=== PATIENT | female | born 1990 | race Caucasian/White ===

== ENCOUNTER → 2019-05-23 11:16 | Outpatient (CLI) | payer SELFPAY ==
[2019-05-23 15:49] LABS: Chlamydia Trachomatis by PCR Negative (Negative); Neisserai gonorrhoeae by PCR Negative (Negative); Probe Check PASS; Sample Adequacy Control PASS; Specimen Processing Control PASS
[2019-05-29 14:04] LABS: HPV APTIMA, High Risk Negative (Negative); HPV Reflexed? YES, CHARGE PATIENT
== END ==
PROVIDERS: Visit Provider Obstetrics & Gynecology
DX: Z12.4 Encounter for screening for malignant neoplasm of cervix (principal); Z11.3 Encounter for screening for infections with a predominantly sexual mode of transmission; Z32.01 Encounter for pregnancy test, result positive
CPT/HCPCS: 87491; 87591; 87624; 88175; G0145

== ENCOUNTER → 2019-06-20 11:14 | Outpatient (CLI) | payer SELFPAY ==
[2019-06-20 13:58] LABS: Absolute Lymphocyte Count 2.32 X10^3/uL (0.83-4.51); Absolute Neutrophil Count 7.2 X10^3/uL (2.0-7.7); Basophil# 0.02 X10^3/uL; Basophil% 0.2 % (0-1); Eosinophil# 0.03 X10^3/uL; Eosinophils% 0.3 % (0-5); Hemoglobin 11.7 g/dL (12.0-15.0); Lymphocyte # 2.32 X10^3/ul (4.0); Lymphocyte % 22.9 % (19-41); Mean Corp Hgb Conc 33.4 g/dL (32-36); Mean Corpuscular Hgb 29.5 pg (27.0-32.0); Mean Corpuscular Volume 88.2 fL (81-99); Mean Platelet Vol. 11.8 fl (6.2-12.0); Monocyte% 4.9 % (0-10); NRBC Flagged by Analyzer 0 % (0-5); Neutrophil # 7.23 X10^3/uL (2.7-7.7); Neutrophil % 71.4 % (47-70); Platelet Count 179 K/mm3 (150-450); RBC Distribution Width CV 13.1 % (11.6-14.6); RBC Distribution Width SD 42.2 fl (35.1-43.9); Red Blood Count 3.97 M/mm3 (4.2-5.4); White Blood Count 10.1 K/mm3 (4.4-11.0)
[2019-06-20 14:02] LABS: Color, Urine Yellow (Yellow); Glucose, Dipstick Normal (Normal); Ketone-Dipstick Negative (Negative); Leukocyte Esterase-Dipstick 500 /ul (Negative); Nitrite-Dipstick Negative (Negative); Occult Blood-Urine Negative /ul (Negative); Protein-Dipstick Negative (Negative); Urine Bilirubin Dipstick Negative (Negative); Urine Clarity Clear (Clear); Urine Urobilinogen Normal (Normal)
[2019-06-20 14:20] LABS: Free T3 2.6 pg/mL (2.18-3.98); T4 Free Direct 0.87 ng/dL (0.76-1.46); Thyroid Stim Hormone (TSH) 0.94 uIU/mL (0.358-3.74)
[2019-06-20 14:59] LABS: HIV - WCH Non-Reactive (Nonreactive); Hepatitis B Surface Antigen Non-Reactive (Nonreactive); Hepatitis C Antibody Non-Reactive (Nonreactive); Rubella IgG 132.9 IU/mL; Vitamin D,25 Hydroxy 30.9 ng/mL (29.95-100.01)
[2019-06-24 04:45] LABS: Prenatal RPR NONREACTIVE (NONREACTIVE)
== END ==
PROVIDERS: Visit Provider Obstetrics & Gynecology
DX: Z34.82 Encounter for supervision of other normal pregnancy, second trimester (principal)
CPT/HCPCS: 36415; 81002; 82306; 84439; 84443; 84481; 85025; 86703; 86762; 86803; 87340

== ENCOUNTER → 2019-09-13 09:04 | Outpatient (CLI) | payer SELFPAY ==
[2019-09-13 10:38] LABS: Hemoglobin 11.2 g/dL (12.0-15.0); Mean Corp Hgb Conc 32.9 g/dL (32-36); Mean Corpuscular Hgb 29.6 pg (27.0-32.0); Mean Corpuscular Volume 89.9 fL (81-99); Mean Platelet Vol. 10.8 fl (6.2-12.0); Platelet Count 182 K/mm3 (150-450); RBC Distribution Width CV 13.1 % (11.6-14.6); RBC Distribution Width SD 42.8 fl (35.1-43.9); Red Blood Count 3.78 M/mm3 (4.2-5.4); White Blood Count 11.2 K/mm3 (4.4-11.0)
[2019-09-13 10:42] LABS: Glucose Challenge Gest 1H 50g 88 mg/dL (70-140)
== END ==
PROVIDERS: Visit Provider Obstetrics & Gynecology
DX: Z34.83 Encounter for supervision of other normal pregnancy, third trimester (principal)
CPT/HCPCS: 36415; 82950; 85027

== ENCOUNTER → 2019-11-07 15:40 | Outpatient (CLI) | payer SELFPAY | PROVIDERS: Visit Provider Obstetrics & Gynecology | DX: Z34.83 Encounter for supervision of other normal pregnancy, third trimester (principal); Z36.85 Encounter for antenatal screening for Streptococcus B | CPT/HCPCS: 87081 ==

== ENCOUNTER 2019-12-12 18:50 | Inpatient (IN) | payer SELFPAY ==
[2019-12-12 18:59] VITALS: BMI 32.8
[2019-12-12] MEDS: Lactated Ringers 1,000 ML 50 ML IV (19:40)
[2019-12-12 20:27] LABS: Absolute Lymphocyte Count 2.71 X10^3/uL (0.83-4.51); Absolute Neutrophil Count 8.2 X10^3/uL (2.0-7.7); Basophil# 0.05 X10^3/uL; Basophil% 0.4 % (0-1); Eosinophil# 0.04 X10^3/uL; Eosinophils% 0.3 % (0-5); Hemoglobin 12.3 g/dL (12.0-15.0); Lymphocyte # 2.71 X10^3/ul (4.0); Lymphocyte % 22.5 % (19-41); Mean Corp Hgb Conc 33.2 g/dL (32-36); Mean Corpuscular Volume 87.3 fL (81-99); Mean Platelet Vol. 10.8 fl (6.2-12.0); Monocyte% 7.5 % (0-10); NRBC Flagged by Analyzer 0 % (0-5); Neutrophil % 68.1 % (47-70); Platelet Count 199 K/mm3 (150-450); RBC Distribution Width CV 13.5 % (11.6-14.6); RBC Distribution Width SD 42.8 fl (35.1-43.9); Red Blood Count 4.24 M/mm3 (4.2-5.4)
[2019-12-12] MEDS: Lactated Ringers 500 ML 999 ML IV (23:38)
--- NOTE | 2019-12-12 23:55 | HP.PCM_ITS ---
History and Physical Date of Admission: 12/12/19 ACOG ANTEPARTUM RECORD - HISTORY AND PHYSICAL (12/12/2019) Name: NORMA TORRES OB Physician: MIKEY What Cheer's Physician: UNDECIDED ...................................................................... : 1990 Age: 29 Address: [address] [place] [address] Phone: H) [phone] (O) [phone] Insurance Carrier: Emergency Contact: KATLYN TORRES/[employer] [phone] ...................................................................... Norma is 29 yo at 41w3d by L=18w4d US who presented to the office today with c/o painful contractions throughout the weekend and loss of mucous plug; post dates NST was reactive and reassuring; cervical exam showed subtle change from exam at previous PNV with Doran score of 10; pt hesitant to return home to wait for IOL in two days, so recommended getting lunch and walking for 2-3 hours; upon return to office, no cervical change noted, but as patient favorable for AROM IOL, living 25 minutes away from hospital and needing to hire a delivery driver for transportation, she decided to stay for IOL this evening at 1900; Over the past several visits she has expressed a preference for as natural as possible a delivery with CNM instead of her original plan for MD only; Pt is Group B negative; She is A negative blood type; spouse is also A negative; pt declined Rhogam prenatally and today; at 2230 FHR was in the 180s with moderate variability and variables; interventions were ordered and plan to proceed was postponed until FHR was more reassuring Final JAVY: 12/02/19 By Ultrasound: 18 weeks 4 days PARITY: (G-Total Pregnancies P-Fullterm,Premature,Induced AB,Spont AB, Ectopics, Multiple,Living) JAVY CONFIRMATION: By LMP: 02/25/19 Final JAVY: 12/02/19 OB PROBLEM LIST: Declines AFP and CF. Office Class suggested. Asked to bring in dosages for her supplements, iron etc at next visit. is RN negative, see donor card in Repository, did not receive Rhogam at 28 weeks Z: Pt prefers MD for PNC and delivery; ALLERGIES: No Known Drug Allergies MEDICATIONS: Classic 28 mg iron- 800 mcg tablet One pill by mouth once a day iron 18 mg tablet Two pills by mouth once a day [place]-3 Fish Oil 300-1,000 mg capsule One pill by mouth once a day Supplement (s) [No Strength] Supplement (s) [No Strength] thyroid SOCIAL HISTORY: Smoking - Never Alcohol Use - RARELY not while Diet - moderate, balanced diet, caffeine < 2 drinks per day and Water intake tries for 2-3 quarts daily. Lifestyle - Exercise - Active at home. Enc to walk 20 min daily. 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 Drug Use - denies use of street drugs Sexual Activity - Residence - owns a home Spouse-Sig Other Name - Katlyn Spouse-Sig Other Occupation - [employer] Spouse-Sig Other Phone No - [phone] Children Name(s) - Zeeshan PRIOR DELIVERY HISTORY DEL DATE GEST LAB WT LB WT OZ TYPE ANES LABOR TX 28 Apr 29 42 [phone] 5 Vag Local No ANTEPARTUM FLOW CHART VISIT GE RTC FU F F MT U U DATE WK MD WKS HT PN HR M SS BP ED WT MT GL D EF ST __ ____ ___ __ __ ___ __ __ __ ___ __ __ __ ___ __ 27 Nov KW + + 106/70 tr - - Nov CH 0.2 41 V + + 130/84 sl 207 - - Nov CH 1 40 V + + 110/72 sl 207 - - 2 50 -1 07 Nov 38 CH 1 39 V + + 130/74 sl 208 tr - Oct 37 SHM 1 36 V + + 136/82 sl 207 - - 23 Oct 36 SHM 1 36 V + + 134/80 sl 203 tr - Oct 35 SHM 2 35 V + + 130/82 1+ 204 tr - Oct 34 KW 1 34 + + 124/68 sl 204 - - Sep SHM 2 33 + + 118/66 sl 201 - - 13 Oct 15 SHM 4 30 V + + 128/78 sl 197 - - 29 Sep 12 KW 2 29 + + 140/82 0 197 - - 01 Aug 24 SHM 4 25 ? + + 110/70 0 191 tr - 03 Aug 05 SHM 4 21 ? on + 118/76 sl 185 - - 05 Jul 01 SHM 4 16 + ? 112/60 0 181 tr - ANTEPARTUM NOTE(S): Dec 12 2019: Dec 07 2019: feeling well. Cervix check. Nov 30 2019: feeling well. Cervix check. Nov 22 2019: feeling well. Cervix check. Nov 15 2019: feeling well. Cxs on and off. Nov 07 2019: GBS today, LARC declined Nov 02 2019: see note Oct 26 2019: Oct 11 2019: doing well Sep 28 2019: doing well Sep 13 2019: feeling well. Glucola drawn. Aug 16 2019: glucola given Jul 19 2019: doing well, comp u/s today Jun 20 2019: COMPREHENSIVE ANTEPARTUM NOTE(S): Dec 12 2019: Pt here for NST at 41w3d, baseline 130, moderate variability,+accels, no decels; irritable uterine pattern w/occsional UCs: pt states has been norm frequently since membranes stripped at last PNV, less today but lost her mucous plug this morning; VE /-1, soft, mid position, (doran score 8), changed from last visit , posterior; pt would prefer non-interventive labor, but living 25 minutes away, with advanced dilation, and needing to hire a delivery driver, is concerned about going home; decision for patient to have lunch, then walk 2 hours, RTO for VE, and if cervix has changed will admit, or if not, discuss IOL - KVW Dec 07 2019: SVE today per here wishes. very posterior still. Feeling great. Lots of FM+. FHR 132. Discussed IOL vs expectant management. Is okay to return Thursday at 41.0 for NST and visit with SHM to discuss options. Would want to stay as long as possible and let her body go into labor more naturally. Thursday would be okay getting NST and visit with SHM to review and then daily NSTs. Reviewed risks and benefits of IOL vs expectant management with danger of placenta >42 weeks. Will send [facility] message on patient to update her. - Nov 30 2019: Reports +FM. FHR 154. Wishes to have SVE today 1. Membrane sweeping performed after discussion of benefits and risks. She is anxious about not knowing when to come in. Will call if contractions are Q7-10 minutes apart for at least 1 hour. Will talk to her through a contraction to let her know if she should come in or not. Reassured that coming in is better than not coming in. Wants to let her body try to go into labor on its own. Did a Cytotec induction with first born and after 1 dose she went into labor. Next week with want SVE and sweep then understands will return at 41.3 weeks to schedule IOL. To call with decreased FM, bleeding, regular UC, or ROM. To return in 1 week if needed. - Nov 22 2019: (m,f*) Here today for routine PNV with reports of +FM. FHR 142 with audible accel to 160 x15 seconds. SVE today 12/10/high posterior mid. Discussed membrane sweeping. Wants SVE with sweeping next week. Lots of education and discussion on timing contractions, to call when they are 5-7 minutes apart, able to go natural with intermittent auscultation, hands and knees to push, and the fact her LMP is unknown so basing JAVY on US meaning she could go at any time. Educated to call for decreased FM, ROM, regular UC or bleeding. We would rather her call if she is unsure than not call. She states she feels a lot better and reassured. To return next week for routine PNV and SVE with sweep. - Nov 14 2019: H taken to OB. tkg Nov 07 2019: Reviewed FM, SROM, and labor. Declines Tdap and Influenza vaccine. LMT Nov 02 2019: Norma reports that she is feeling good. She says she has some swelling around ankles when on her feet a lot, but isn't bothersome. Wants to ask Dr about position of baby, says she feels a lot of movement. MLK Oct 26 2019: Good FM. Slight headache today---getting ready to move in 2 wks, so thinks she is overtired. kbm Oct 26 2019: Feeling well; reports active FM; denies UCs, VB, LOF; c/o mild CERRATO, denies visual changes, epigastric pain or nausea; reflexes 2+ bilaterally lower extremities, no clonus; discussed warning signs, s/s PTL; RTO 1 week for PNV, GBS swab - KVW Sep 28 2019: Femdophilus for GBS prevention discussed. Normal 1h GTT Sep 13 2019: Feeling well, does report some occasional, mild esophageal reflux; reports active FM; denies UCs, VB, LOF; 1 hour Glucola and bloodwork drawn today; repeat BP 128/74; recommended stopping fish oil at 36 weeks, discussed comfort measures/medications to address reflux, warning signs, s/s PTL; pt prefers MD for PNC and delivery; RTO 2 weeks for PNV - KVP Sep 13 2019: Hgb 11.2 g/dl. Glucola 88. EB Aug 16 2019: Advised to bring copy of 's blood typing results or donor card. PTL, ROM precautions. Discussed labor analgesia. Considering IV, nitrous oxide. Open to epidural. Carpal tunnel sx - discussed splinting. Aug 16 2019: Norma is here for visit. Glucola given with instructions and recommendations for Influenza and Tdap reviewed. Not sure about this as feels this may cause a rash for baby if she has as friend reports this to her. Recommend that she review the [employer] website for more accurate information on reasoning behind this. Relates with Rh negative blood type also. Does not want Rhogam. Will discuss further with DR FAUST. LMT Jul 19 2019: US FEMALE, EFW 36.6%, POSTERIOR placenta. Ok for . Discussed round ligament pain, [place]ing[place] contractions. Jun 20 2019: Norma is here for NOB nurse visit with JAVY 12-02-19 planning a vag del probably without an epidural at [facility], unsure of ped care post discharge and plans to breastfeed. Norma is an Shinto G 2 P 1 w 5 yo son at home. She delivered Zeeshan at [facility] following a 7-8 hour labor at 42 weeks. He weighed 9# 5 oz. She had no epidural but says she did have a 3rd degree tear. Her , Katlyn works for [employer]. They are pleased about the . They are currently in the process of buying the family home which they are excited about. Norma has NKA to drugs, food. latex or the environment. Her diet is well balanced with minimal caffeine and 2-3 quarts of water daily.. She is a lifetime non smoker, rarely drinks alcohol and denies any street drug use. She is active with her home and occ takes a walk. Enc to walk 20 min daily, weather allowing. Genetic Screening form completed noting no family issues. She declines AFP and CF tests. Warning signs in pg reviewed along with otc meds ok to take, importance of protein in her diet, reaching the office after regular hours and wearing seatbelt ALWAYS and low on her abdomen. Currently she wears it only if in the front seat. Norma takes a variety of herbal supplements which were placed on the med record with as much a ccuracy as she had. She takes a triple fish oil supplement, an herbal thyroid supplement, an iron supplement and some type of vitamin. I asked her to bring in dosages at next visit. She asks about a chlorophyl supplement to cleanse the blood and I referred her to [facility]. at 20 weeks to be done on next visit. Routine labs done today adding Vit D level and thyroid panel. Office Class suggested as she had difficulty getting started with Zeeshan. Info given. Enc to call w any concerns. Visit took one hour. Yordan ALCARAZ. Jun 20 2019: Reviewed labs for draw, movement. May 23 2019: Norma is here today for a missed menses appointment. Patient is a . Positive upt in office today. Lmp 02/25/2019 making her 12-13 wks with Javy of 11/2019. Patient states that she has some light spotting mid April and that she has had no further bleeding or spotting since that time. Patient has started on vitamin. Patient states that prior to she was having irregular variable menses until she started thyroid supplement with outreach specialist. Patient states that FreeT4 and Free T3 were slightly hypoactive. Patient states that she stopped her thyroid supplement when she found out she was and decided to wait till seen for follow up. Patient has h/o normal pap but unsure when last pap was maybe 5 years ago when she was with her son. Patient is due for pap and cultures today. Educational materials provided and reviewed with patient. alvaro May 23 2019: as above. G1 - IOL for postdates, MALE, 9#5oz in 04/2014. 3rd degree vaginal laceration. Had abx for GBS. No GBS infection. Inquires about GBS prevention. Denies shoulder dystocia or other complication. hx hypothyroidism and treated by holistic practitioner. No family hx VTE/stroke/AK/cardiac arrest. No recent or planned travel. Dog and horse in barn, no other animals at home. [facility] REVIEW OF SYSTEMS: GENERAL - Denies fever, or chills SKIN - Denies rash, new skin lesions, or change in moles EYES - Denies blurred vision, or change in visual acuity EARS - Denies ear pain, or difficulty hearing NOSE - Denies nasal congestion, discharge, or bleeding MOUTH - Denies sore throat, or difficulty swallowing NECK - Denies pain or swelling RESPIRATORY - Denies shortness of breath, cough, wheezing CARDIOVASCULAR - Denies palpitations, chest pain, orthopnea, PND, peripheral edema, syncope or claudication GASTROINTESTINAL - Denies nausea, vomiting, diarrhea, constipation, Denies abdominal pain, melena and or bright red blood GENITOURINARY - Denies dysuria, frequency of urination, urgency, or hesitancy MUSCULOSKELETAL - Denies joint or muscle pain, or back pain NEUROLOGICAL - Denies localized numbness, weakness, or tingling PSYCHIATRIC - Denies depression, anxiety, substance abuse or suicide attempts ENDOCRINE - Denies heat or cold intolerance, weight loss or gain, increasing thirst HEMATO-IMMUNOLOGIC - Denies easy bruising, bleeding, oral ulcerations or recurrent infections GENETICS SCREENING: Age 35+ years: No Thalassemia: No Neural Tube Defect: No Down Syndrome: No LESA-SACHS: No Sickle Cell Disease: No Hemophilia: No Musc. Dystrophy: No Cystic Fibrosis: No-declines screening Jerrod Chorea: No Mental Retardation: No Fragile X: No Other genetic: No Other defects: No SABs/still births: No Drugs since LMP: No INFECTION HISTORY: High risk AIDS: No High risk Hepatitis: No Exposed to TB: No Exposed to Herpes: No Rash/viral illness since LMP: No History of STD: No MENSTRUAL HISTORY: *Menses Amount/Duration: 5-6 daysMenses Regularity: irregularFrequency: variableMenarche (Age Onset): 13* PAST SUMMARY: PARITY: 1. Total Pregnancies............ 2 2. Full Term Pregnancies........ 1 3. Premature.................... 0 4. Abortions - Induced.......... 0 5. Abortions - Spontaneous...... 0 6. Ectopics..................... 0 7. Multiple Births.............. 0 8. Living Children.............. 1 PAST #1: Date of :.................. 05/13/[birth year] Gestation Weeks:................ 42 Length of labor(hours):......... 7 Sex:............................ M Weight-lbs:............... 9 Weight-oz:................ 5 Type of Delivery:............... Vag Type of Anesthesia:............. Local Place of Delivery:.............. [facility] Treatment of Labor?:.... No Comment: GBS+, 3RD DEGREE. Labs for : NORMA TORRES since 03/07/2019 ORDER DATEIN DESCRIPTION VALUE UNITS RANGE A+ COMMENT TYPE AND SCREEN 12/12/19 Reason for Type AND Screen/Red Cells: [facility]~[address] [place], [address]~ BLOOD TYPE GEL A NEGATIVE N ANTIBODY SCREEN NEGATIVE N CBC W/DIFF, AUTOMATED 12/12/19 NOTE Original Ordering Provider: Lalo Merino WBC 12.0 K/mm3 4.4-11.0 H RBC 4.24 M/mm3 4.2-5.4 HGB 12.3 g/dL 12.0-15.0 HCT 37.0 % 37-47 MCV 87.3 fL 81-99 MCH 29.0 pg 27.0-32.0 MCHC 33.2 g/dL 32-36 RDW CV 13.5 % 11.6-14.6 RDW SD 42.8 fl 35.1-43.9 PLT 199 K/mm3 150-450 MPV 10.8 fl 6.2-12.0 NEUT% 68.1 % 47-70 LY% 22.5 % 19-41 MONO% 7.5 % 0-10 EO% 0.3 % 0-5 BASO% 0.4 % 0-1 IM GRAN % 1.200 % 0.0-0.9 H IG% - Immature Granulocytes (promyelocytes, myelocytes and metamyelocytes) > 1% indicates that a LEFT SHIFT is Present. ABSOLUTE NEUT 8.2 X10 3/uL 2.0-7.7 H ABSOLUTE LYMPH 2.71 X10 3/uL 0.83-4.51 NRBC, FLAGGED 0 % 0-5 Reviewed by VANESA CULTURE, GROUP B STREPTOCOCCUS 11/07/19 NOTE Original Ordering Provider: Ida Bassett Comments: VAGINAL/RECTAL ALEXANDER Culture Group B Beta Streptococcus is not isolated. Reviewed by IDA GLUCOSE CHALLENGE GEST 1H 50Gw 09/13/19 NOTE Original Ordering Provider: Shelbi Palm GLU GEST 50G 1H 88 mg/dL 70-140 Reviewed by SHELBI CBC-COMPLETE BLOOD CNT NO DIFF 09/13/19 NOTE Original Ordering Provider: Shelbi Palm WBC 11.2 K/mm3 4.4-11.0 H RBC 3.78 M/mm3 4.2-5.4 L HGB 11.2 g/dL 12.0-15.0 L HCT 34.0 % 37-47 L MCV 89.9 fL 81-99 MCH 29.6 pg 27.0-32.0 MCHC 32.9 g/dL 32-36 RDW CV 13.1 % 11.6-14.6 RDW SD 42.8 fl 35.1-43.9 PLT 182 K/mm3 150-450 MPV 10.8 fl 6.2-12.0 Reviewed by SHELBI RPR 06/20/19 NOTE Original Ordering Provider: Ida Bassett RPR NONREACTIVE NONREACTIVE Reviewed by [facility] T AND S-NO CHARGE W/PNP 06/20/19 Reason for Type AND Screen/Red Cells: Surgery? [facility]~[address] [place], [address]~ BLOOD TYPE GEL A NEGATIVE N AB SCREEN GEL NEGATIVE N Reviewed by IDA HEPATITIS C ANTIBODYw 06/20/19 NOTE Original Ordering Provider: Ida Bassett HEPATITIS C AB Non-Reactive Nonreactive Non Reactive: < 0.8 Equivocal: >/= 0.8 to < 1.0 Reactive: >/= 1.0 The CDC recommends that a reactive/equivocal HCV antibody result be followed up by the HCV Nucleic Acid Amplification test ([id number]) Reviewed by IDA HEPATITIS B SURFACE ANTIGEN 06/20/19 NOTE Original Ordering Provider: Ida Bassett HEPB SURFACE AG Non-Reactive Nonreactive Reviewed by IDA HIV - [facility] 06/20/19 NOTE Original Ordering Provider: Ida Bassett HIV - [facility] Non-Reactive Nonreactive Reviewed by IDA RUBELLA IGG 06/20/19 NOTE Original Ordering Provider: Ida Bassett RUBELLA IGG 132.9 IU/mL Antibody results Interpretation of Immune Status < 5 IU/ml Presumed Non-immune 5 - < 10 IU/ml Equivocal > or = 10 IU/ml Presumed Immune Reviewed by IDA VITAMIN D,25 HYDROXY 06/20/19 NOTE Original Ordering Provider: Ida Bassett VITAMIN D 25-OH 30.9 ng/mL 29.95-100.01 Vitamin D 25(OH) Status Range Deficiency <20 ng/mL (50nmol/L) Insufficiency 20 - 30 ng/mL (50 - 75 nmol/L) Sufficiency 30 - 100 ng/mL (75 - 250 nmol/L) Toxicity >100 ng/mL (>250 nmol/L) Reviewed by [facility] T4 FREE DIRECT 06/20/19 NOTE Original Ordering Provider: Ida Bassett T4 FREE DIRECT 0.87 ng/dL 0.76-1.46 Reviewed by [facility] THYROID STIM HORMONE (TSH) 06/20/19 NOTE Original Ordering Provider: Ida Bassett TSH 0.94 uIU/mL 0.358-3.74 Reviewed by [facility] FREE T3 06/20/19 NOTE Original Ordering Provider: Ida Bassett FREE T3 2.6 pg/mL 2.18-3.98 Reviewed by IDA URINALYSIS, ROUTINE (DIPSTICK) 06/20/19 NOTE Original Ordering Provider: Ida Bassett COLOR Yellow Yellow CLARITY Clear Clear GLUCOSE, UR Normal mg/dl Normal BILIRUBIN URINE Negative mg/dL Negative KETONE UR Negative mg/dl Negative SP.GR. DIPSTX 1.010 1.002-1.030 PH UR 7.0 5.0 - 8.0 PROT DIPSTX Negative mg/dl Negative UROBILI Normal mg/dl Normal NITRITE UR Negative Negative OCCULT BLOOD-UR Negative /ul Negative LEUK ESTERASE 500 /ul Negative H Reviewed by IDA CBC W/DIFF, AUTOMATED 06/20/19 NOTE Original Ordering Provider: Ida Bassett WBC 10.1 K/mm3 4.4-11.0 RBC 3.97 M/mm3 4.2-5.4 L HGB 11.7 g/dL 12.0-15.0 L HCT 35.0 % 37-47 L MCV 88.2 fL 81-99 MCH 29.5 pg 27.0-32.0 MCHC 33.4 g/dL 32-36 RDW CV 13.1 % 11.6-14.6 RDW SD 42.2 fl 35.1-43.9 PLT 179 K/mm3 150-450 MPV 11.8 fl 6.2-12.0 NEUT% 71.4 % 47-70 H LY% 22.9 % 19-41 MONO% 4.9 % 0-10 EO% 0.3 % 0-5 BASO% 0.2 % 0-1 IM GRAN % 0.300 % 0.0-0.9 IG% - Immature Granulocytes (promyelocytes, myelocytes and metamyelocytes) > 1% indicates that a LEFT SHIFT is Present. ABSOLUTE NEUT 7.2 X10 3/uL 2.0-7.7 ABSOLUTE LYMPH 2.32 X10 3/uL 0.83-4.51 NRBC, FLAGGED 0 % 0-5 Reviewed by IDA PAP I-G W/RFX HRHPV-APTIMA 05/23/19 NOTE Original Ordering Provider: Ida aBssett DIAGN . NEGATIVE FOR INTRAEPITHELIAL LESION OR MALIGNANCY. ADEQ . Satisfactory for evaluation. Endocervical and/or squamous metaplastic cells (endocervical component) are present. PERFORM . Selena Zarate, Calendering Machine Operator (ASCP) TEST METHOD . This liquid based ThinPrep(R) pap test was screened with the use of an image guided system. COMM . . PAPSMR . The Pap smear is a screening test designed to aid in the detection of premalignant and malignant conditions of the uterine cervix. It is not a diagnostic procedure and should not be used as the sole means of detecting cervical cancer. Both false-positive and false-negative reports do occur. HPV APTIMA, HR Negative Negative This test detects fourteen high-risk HPV types (16/18/31/33/35/39/45/ 51/52/56/58/59/66/68) without differentiation. Performed at: [address] [id number] Waterproofing Supervisor: Mirlande Serna MD, Phone: [phone] Performed at: =[address] [id number] Waterproofing Supervisor: Mirlande Serna MD, Phone: [phone] Reviewed by [facility] HPV APTIMA, HIGH RISK 05/23/19 NOTE Original Ordering Provider: Ida Bassett HPV APTIMA, HR Negative Negative This test detects fourteen high-risk HPV types (16/18/31/33/35/39/45/ 51/52/56/58/59/66/68) without differentiation. Performed at: [address] [id number] Waterproofing Supervisor: Mirlande Serna MD, Phone: [phone] Performed at: =[address] [id number] Waterproofing Supervisor: Mirlande Serna MD, Phone: [phone] Reviewed by [facility] PAP TEST I-G 05/23/19 NOTE Original Ordering Provider: Ida Bassett DIAGN . NEGATIVE FOR INTRAEPITHELIAL LESION OR MALIGNANCY. ADEQ . Satisfactory for evaluation. Endocervical and/or squamous metaplastic cells (endocervical component) are present. PERFORM . Selena Zarate, Calendering Machine Operator (ASCP) TEST METHOD . This liquid based ThinPrep(R) pap test was screened with the use of an image guided system. COMM . . PAPSMR . The Pap smear is a screening test designed to aid in the detection of premalignant and malignant conditions of the uterine cervix. It is not a diagnostic procedure and should not be used as the sole means of detecting cervical cancer. Both false-positive and false-negative reports do occur. Reviewed by IDA CT/NG [facility] BY PCR 05/23/19 NOTE Original Ordering Provider: Ida [facility] PCR Negative Negative NG BY PCR Negative Negative Reviewed by IDA PROVIDER SIGNATURE ( REQUIRED) PHYSICAL EXAMINATION General Appearence: 29 yo female in no acute distress Vital Signs: AF, VSS Heart: RRR without rubs or gallops Lungs: CTA x 2 Breasts: deferred Abdomen: gravid Pelvis: Cervix: 4/80/-1 per this provider at 2334 Presentation: cephalic Fetus: Size: AGA Movement: present Heart:180 baseline, moderate variability, variable decels UCs: Q 1-2 Impression:29 yo [id number] by L=18w4d US GBS negative A negative w/A negative spouse, pt declines Rhogam Cat 2 FHTs Plan: Pt admitted for IOL followed by Pitocin if needed 500 ml LR bolus x 1 now; pt to L lateral Plan AROM when baseline between 120 and 160 and reassuring,and UCs Q 2 minutes or greater Anticipate vaginal
--- NOTE | 2019-12-13 01:51 | PCM.PN.BLA ---
Progress Note S: Feels some discomfort with contractions, but tolerable; spouse bedside and supportive O: AVSS FHTs: now 145 baseline, mod variability, +accelsl, no decels after a period of tachycardia with variable decelerations UCs: Q 1 , uterus soft between contactions Cervix: 5/80/-1 A: Active labor tachycardia now resolving Uterine tachysystole Cat 1 FHTs P: D/w Dr. Merino AROM for small amount clear blood tinged fluid Unable to advance IUPC, external toco placed for now FSE placed Close monitoring, recheck cervix 2 two hours, attempt to place IUPC
--- NOTE | 2019-12-13 05:07 | PCM.PN.BLA ---
Progress Note S: Increasing discomfort with contractions; able to breath through, but not speak during; spouse at side and supportive O: AVSS FHTs: 135 baseline, +accels, no decels UCs: Q 12-3 A: Active labor Cat 1 FHTs P: Expectant management Anticipate vaginal
--- NOTE | 2019-12-13 06:58 | PCM.PN.BLA ---
Progress Note S: Feeling increased pressure, increased discomfort O: AVSS FHTs:135 moderate variability, no accels or decels UCs: 1.5-3 Cervix: 8/90/-1; moderate meconium noted A: Active labor, progressing Cat 1 FHTs Moderate meconiumn P: Continued close monitoring Pediatrics at delivery
[2019-12-13] MEDS: Lactated Ringers 500 ML 999 ML IV ×2 (08:15→12:42)
[2019-12-13] MEDS: fentaNYL-bupivacaine (epidural) 100 ML BAG EPIDURAL (09:00)
[2019-12-13] MEDS: Oxytocin 30 units/NS 500 ml 30 UNITS/500 ML IV.SOLN 334 UNITS IV (11:33)
[2019-12-13] MEDS: Methylergonovine 0.2 MG/ML Ampul IM (13:14)
--- NOTE | 2019-12-13 13:20 | RAD_ITS ---
STUDY: X-RAY - ABDOMEN/PELVIS REASON FOR EXAM: Female, 29 years old. INCORRECT SPONGE COUNT. VAGINAL DELIVERY. TECHNIQUE: Single AP view of the abdomen / pelvis. COMPARISON: None. FINDINGS: No radiopaque foreign body is seen. There is an unremarkable bowel gas pattern. The visualized liver, spleen and kidneys are grossly normal in size and morphology. Normal soft tissue structures. Normal visualized osseous structures. RAD/Abdomen Single View (Portable) IMPRESSION: No radiopaque foreign body is seen. Electronically Signed: Sushant Garcia, at 13:57 EST , Service support ,
[2019-12-13 17:29] VITALS: BP 126/73; PULSE 90; RESP 16; TEMP 36.8
[2019-12-13 20:22] VITALS: BP 115/78; PULSE 84; RESP 18; TEMP 36.6
[2019-12-13 23:49] VITALS: BP 101/63; PULSE 84; RESP 16; TEMP 36.8
--- NOTE | 2019-12-13 23:55 | PCM.OPRPT ---
Problem List (1) 41 weeks gestation of Status: Acute (2) (spontaneous vaginal delivery) Status: Acute Report of Operation Date of Procedure: 12/13/19 Pre-Operative Diagnosis: 41 4/7 wga, labor Post-Operative Diagnosis: 41 4/7wga, labor Vaginal Delivery Maternal Presentation: Active Labor Amniotic Membrane Rupture Type: Spontaneous Rupture of Membrane time: 12/13/19 0137 Amniotic Fluid Description: Moderate meconium Final JAVY: 12/02/19 Final JAVY Source: US <20 weeks Gestational age: 41 Weeks and 4 Days Date of Procedure: 12/13/19 Pre-Operative Diagnosis: 41 4/7wga Post-Operative Diagnosis: 41 4/7wga Surgery/ Procedure Performed: Spontaneous Vaginal Delivery, - - Banjo curettage Anesthesiologist: Randy Merino Type of Anesthesia: Epidural Description of Procedure: Patient was FD/+3 station and pushed to deliver a vigorous female . The was placed on the maternal abdomen and further attended by nursery personnel. The cord was doubly clamped and cut. Cord gases were obtained. The placenta delivered spontaneously with noticeable trailing membranes that did not entirely deliver. The placenta otherwise appeared intact on inspection. There is an increase in bleeding without hemorrhage. Intrauterine exam was performed and the adherent membranes were manually extracted. Gauze curettage, then Banjo curettage was subsequently performed under US guidance with contraction of the uterine body and retained products were retrieved. Bleeding was much improved. The cervix appeared intact. A second degree perineal laceration was repaired with 3-0 Vicryl Rapide. Sponge and needle counts were correct x 2. Presentation: Vertex Placental Delivery Description: Spontaneous Placenta Disposition: [facility] Cord Vessel Description: 3 Vessels Cord Gases drawn per routine: ABG, VBG Cord Entanglement: None Drain: - - Straight catheterization of bladder - 150 mL Estimated Blood Loss: 500 ml Infant A gender: Female (1 minute): 8 (5 minute): 9 Episiotomy Description: None Laceration: Midline, Perineal Extension/lac, 2nd degree Medications given after delivery: IV Pitocin, IM Methergin Complications: None
[2019-12-14] MEDS: Acetaminophen 500 MG Tablet 1000 MG PO ×3 (00:02→23:22)
[2019-12-14 04:49] VITALS: BP 102/55; PULSE 69; RESP 18; TEMP 36.3
--- NOTE | 2019-12-14 05:48 | DCINST_ITS ---
Discharge Diet: No Restrictions Discharge Activity: Return to Normal Activity May resume sexual activity in: 6 weeks Lifting Restrictions: 10-20 lb Suture Line Care: Avoid Pulling/Pushing Additional Instructions: If you experience any of the following, contact your healthcare provider. * Bleeding that soaks a pad every hour for 2 hours * Fever 100.4 or higher * Unrelieved incision or abdominal pain * Swelling, redness, discharge or bleeding from your incision or episiotomy site * Your incision begins to separate * Problems urinating (including inability to urinate or burning while urinating). * Visual changes * Severe headache * Flu-like symptoms * Pain or redness in one of both of your breasts * Pain, warmth, tenderness or swelling in your legs, especially the calf area * Frequent nausea and vomiting * Symptoms of depression or anxiety If you experience any of the following, call 911 or go to the nearest Emergency Room. * Chest pain * Problems breathing * Seizure activity * Partial or complete paralysis of a body part, slurred speech, weakness or drooping of the face, or a sudden inability to walk or hold your balance Allergies/Adverse Reactions: Allergies No Known Allergies Allergy (Verified 12/12/19 19:34) Medications to take at Discharge Ibuprofen [Motrin] 600 mg PO TID PRN #30 tab 12/14/19 The following prescriptions were given: Ibuprofen [Motrin] 600 mg PO TID PRN #30 tab PRN Reason: Pain Or Fever Transmission Status: Pending to [facility]/pharmacy #[id number] Please Follow Up With: Lizzie Bassett MD When: 6 weeks Primary Care Physician: Care Physician,No Primary [Primary Care Provider] - Test Results: Test results from this visit will be discussed in further detail at your follow- up appointment, if applicable.
--- NOTE | 2019-12-14 05:48 | PCM.DCVAG ---
Discharge Diet: No Restrictions Discharge Activity: Return to Normal Activity May resume sexual activity in: 6 weeks Lifting Restrictions: 10-20 lb Suture Line Care: Avoid Pulling/Pushing Additional Instructions: If you experience any of the following, contact your healthcare provider. Bleeding that soaks a pad every hour for 2 hours Fever 100.4 or higher Unrelieved incision or abdominal pain Swelling, redness, discharge or bleeding from your incision or episiotomy site Your incision begins to separate Problems urinating (including inability to urinate or burning while urinating). Visual changes Severe headache Flu-like symptoms Pain or redness in one of both of your breasts Pain, warmth, tenderness or swelling in your legs, especially the calf area Frequent nausea and vomiting Symptoms of depression or anxiety If you experience any of the following, call 911 or go to the nearest Emergency Room. Chest pain Problems breathing Seizure activity Partial or complete paralysis of a body part, slurred speech, weakness or drooping of the face, or a sudden inability to walk or hold your balance Allergies/Adverse Reactions: Allergies No Known Allergies Allergy (Verified 12/12/19 19:34) Medications to take at Discharge Ibuprofen [Motrin] 600 mg PO TID PRN #30 tab 12/14/19 The following prescriptions were given: Ibuprofen [Motrin] 600 mg PO TID PRN #30 tab PRN Reason: Pain Or Fever Transmission Status: Pending to [facility]/pharmacy #[id number] Please Follow Up With: Lizzie Bassett MD When: 6 weeks Primary Care Physician: Care Physician,No Primary [Primary Care Provider] - Test Results: Test results from this visit will be discussed in further detail at your follow-up appointment, if applicable.
[2019-12-14 06:37] LABS: Hematocrit 33.5 % (37-47); Mean Corp Hgb Conc 32.8 g/dL (32-36); Mean Corpuscular Hgb 28.7 pg (27.0-32.0); Mean Corpuscular Volume 87.5 fL (81-99); Mean Platelet Vol. 10.6 fl (6.2-12.0); Platelet Count 194 K/mm3 (150-450); RBC Distribution Width CV 13.7 % (11.6-14.6); RBC Distribution Width SD 43.3 fl (35.1-43.9); Red Blood Count 3.83 M/mm3 (4.2-5.4); White Blood Count 16.4 K/mm3 (4.4-11.0)
--- NOTE | 2019-12-14 07:56 | PCM.PN.OB ---
Patient Problems: Active and Suspected Problems 41 weeks gestation of (Acute) (spontaneous vaginal delivery) (Acute) Subjective: No issues overnight. She is infant. Working on latch. Denies heavy bleeding or pain. Feels well, oob. Objective: avss - Physical Exam Vitals/I&O's: Vital Signs Temp Pulse Resp BP 97.4 F L 69 18 102/55 L 12/14/19 04:49 12/14/19 04:49 12/14/19 04:49 12/14/19 04:49 Oxygen Delivery Method Room Air Weight: 95.254 kg Body Mass Index (BMI) 32.8 Intake and Output for Last 24 Hours 12/12/19 12/13/19 12/14/19 23:59 23:59 23:59 Intake Total 198.33 / 1698.33 4344.32 / 4344.32 Output Total 1600 / 1600 Balance 198.33 / 898.33 2744.32 / 2744.32 General: Alert, Oriented x3, Cooperative, No apparent distress HEENT: Atraumatic, Normocephalic Lungs: Clear to auscultation, Normal air movement Cardiovascular: Regular rate, Regular Rhythm, Normal S1, Normal S2 Abdomen: Soft, Non Tender, Non-Distended, - - fundus firm and nontender Extremities: No edema, No Calf Tenderness Neurological: Neuro grossly intact Psych/Mental Status: Normal Affect, Appropriate, Alert and oriented to time, place, person, mood and affect Laboratory Results 12/14/19 06:20: WBC 16.4 H, RBC 3.83 L, Hgb 11.0 L, Hct 33.5 L, MCV 87.5, MCH 28.7, MCHC 32.8, RDW Std Deviation 43.3, RDW Coeff of Fabricio 13.7, Plt Count 194, MPV 10.6 Current Medications Acetaminophen (Tylenol) 1,000 mg PO Q8H PRN PRN PRN Reason: Pain Score 1-3/10 Last Admin: 12/14/19 00:02 Dose: 1,000 mg Documented by: Bisacodyl (Dulcolax) 10 mg RECTAL UD PRN PRN Reason: If no BM Dibucaine (Dibucaine) 1 applic TOPICAL TID PRN PRN; Protocol PRN Reason: Discomfort Hydrocortisone (Hytone) 1 applic TOPICAL TID PRN PRN; Protocol PRN Reason: Discomfort Ibuprofen (Motrin) 600 mg PO Q6H PRN PRN PRN Reason: Pain Score 1-3/10 Methylergonovine Maleate (Methergine) 0.2 mg IM X1 PRN PRN Reason: Excess bleeding/uterine atony Last Admin: 12/13/19 13:14 Dose: 0.2 mg Documented by: Methylergonovine Maleate (Methergine) 0.2 mg PO 4X/DAY MONTEZ Stop: 12/14/19 18:00 Last Admin: 12/13/19 22:07 Dose: 0.2 mg Documented by: Ondansetron HCl (Zofran) 4 mg IV Q4H PRN PRN PRN Reason: Nausea Senna/Docusate Sodium (Senokot-S, Shanda-Colace) 1 - 2 tablet PO DAILY PRN PRN PRN Reason: Constipation Simethicone (Mylicon) 80 mg PO PCHS PRN PRN Reason: Indigestion/Stomach pain Sodium Chloride () 5 - 15 ml IV UD PRN PRN Reason: SALINE FLUSH Medical Necessity - Tobacco Use Smoking Status: Never smoker Assessment/Plan All Active Problems 41 weeks gestation of (Acute) (spontaneous vaginal delivery) (Acute) 29yo PPD#1 s/p doing well. -Routine care -Rh negative, f/u bleed -
[2019-12-14 09:34] VITALS: BP 104/73; PULSE 80; RESP 16; TEMP 36.3
[2019-12-14 12:00] VITALS: BP 111/81; PULSE 72; RESP 18; TEMP 36.3
[2019-12-14 16:00] VITALS: BP 104/64; PULSE 71; RESP 16; TEMP 36.4
[2019-12-14 19:53] VITALS: BP 111/65; PULSE 67; RESP 18; TEMP 36.3
[2019-12-15 02:00] VITALS: BP 105/59; PULSE 70; RESP 18; TEMP 36.2
[2019-12-15 08:10] VITALS: BP 109/54; PULSE 76; RESP 16; TEMP 36.6; O2SAT 98
--- NOTE | 2019-12-15 08:45 | DS.PCM_ITS ---
Discharge Date and Diagnosis - Problem List Patient Problems: Active and Suspected Problems 41 weeks gestation of (Acute) (spontaneous vaginal delivery) (Acute) Date of Admission: 12/12/19 Date of Discharge: 12/15/19 - Primary Discharge Diagnosis Active and Suspected Problems 41 weeks gestation of (Acute) (spontaneous vaginal delivery) (Acute) Hospital Course and Treatment Consultations 12/12/19 19:35 Consult: Anesthesia Routine Comment: Reason For Exam: Labor Summary of Care Provided: The patient is a 29 year old F [] Patient Problems: Active and Suspected Problems 41 weeks gestation of (Acute) (spontaneous vaginal delivery) (Acute) Subjective: Cramping with is a 5/10, which didn't notice with first baby. Daughter is a lazy feeder, but doing well. Concerned about increased pain and both feet swelling. Wants to go home, but wants to get in sooner for a appointment. Objective: VSS. Fundus u/2, midline, firm. Lochia rubra moderate. Female infant well, but taking awhile to latch. Maternal/infant diad stable for discharge home. - Physical Exam Vitals/I&O's: Vital Signs Temp Pulse Resp BP Pulse Ox 97.8 F 76 16 109/54 L 98 12/15/19 08:10 12/15/19 08:10 12/15/19 08:10 12/15/19 08:10 12/15/19 08:10 Oxygen Delivery Method Room Air Weight: 95.254 kg Body Mass Index (BMI) 32.8 Intake and Output for Last 24 Hours 12/13/19 12/14/19 12/15/19 23:59 23:59 23:59 Intake Total 4344.32 / 4344.32 Output Total 1600 / 1600 Balance 2744.32 / 2744.32 General: Alert, Oriented x3, Cooperative HEENT: Atraumatic, PERRLA, EOMI, Normocephalic Neck: Supple, No JVD, Negative Carotid Bruits Lungs: Clear to auscultation, Normal air movement Cardiovascular: Regular rate, No murmurs Abdomen: Bowel Sounds Present, Soft, Non Tender, Hypoactive Bowel Sounds, - - fundus u/2 Extremities: No edema, Capillary Refill Less than 3 Seconds Skin: No rashes, No breakdown Musculoskeletal: No Tenderness to Palpation of Joints or Extremities Neurological: Cranial nerves II-XII grossly intact Psych/Mental Status: Normal Affect, Appropriate Current Medications Acetaminophen (Tylenol) 1,000 mg PO Q8H PRN PRN PRN Reason: Pain Score 1-3/10 Last Admin: 12/14/19 23:22 Dose: 1,000 mg Documented by: Bisacodyl (Dulcolax) 10 mg RECTAL UD PRN PRN Reason: If no BM Dibucaine (Dibucaine) 1 applic TOPICAL TID PRN PRN; Protocol PRN Reason: Discomfort Hydrocortisone (Hytone) 1 applic TOPICAL TID PRN PRN; Protocol PRN Reason: Discomfort Ibuprofen (Motrin) 600 mg PO Q6H PRN PRN PRN Reason: Pain Score 1-3/10 Methylergonovine Maleate (Methergine) 0.2 mg IM X1 PRN PRN Reason: Excess bleeding/uterine atony Last Admin: 12/13/19 13:14 Dose: 0.2 mg Documented by: Ondansetron HCl (Zofran) 4 mg IV Q4H PRN PRN PRN Reason: Nausea Senna/Docusate Sodium (Senokot-S, Shanda-Colace) 1 - 2 tablet PO DAILY PRN PRN PRN Reason: Constipation Simethicone (Mylicon) 80 mg PO PCHS PRN PRN Reason: Indigestion/Stomach pain Sodium Chloride () 5 - 15 ml IV UD PRN PRN Reason: SALINE FLUSH Discharge Diet: No Restrictions Discharge Activity: Return to Normal Activity May resume sexual activity in: 6 weeks Suture Line Care: Avoid Pulling/Pushing Home Medications: Medications to take at Discharge Ibuprofen [Motrin] 600 mg PO TID PRN #30 tab 12/14/19 Following Prescrptions Were Given to Patient: Ibuprofen [Motrin] 600 mg PO TID PRN #30 tab PRN Reason: Pain Or Fever Transmission Status: Received by [facility]/pharmacy #[id number] Primary Care Physician: Care Physician,No Primary [Primary Care Provider] - Please Follow Up With: Lizzie Bassett MD When: In 2 weeks for follow up. Patient Instructions: at Home, Holds for , Nutrition While , Understanding Depression Disposition: Home Minutes spent on discharge:: 20 Patient Condition:: Good Medical Necessity - Tobacco Use Smoking Status: Never smoker Meaningful Use Info Meaningful Use Diagnoses (Choose all that apply): None applicable
[2019-12-15] MEDS: Ibuprofen 600 MG Tablet PO (12:24)
[2019-12-15 13:45] VITALS: BP 109/59; PULSE 80; RESP 16; TEMP 36.7
--- NOTE | 2019-12-15 16:57 | NURSING ---
agree with student charting and assessment that is used for educational purposes.
== END 2019-12-15 13:45 | disposition home or self-care (01) | DRG 798 ==
PROVIDERS: Admitting Provider Obstetrics & Gynecology; Referring Provider Obstetrics & Gynecology; Visit Provider Obstetrics & Gynecology
DX: O76 Abnormality in fetal heart rate and rhythm complicating labor and delivery (principal); Z37.0 Single live birth; O48.0 Post-term pregnancy; O77.0 Labor and delivery complicated by meconium in amniotic fluid; O70.1 Second degree perineal laceration during delivery; O42.02 Full-term premature rupture of membranes, onset of labor within 24 hours of rupture; O73.1 Retained portions of placenta and membranes, without hemorrhage; O73.0 Retained placenta without hemorrhage; Z3A.41 41 weeks gestation of pregnancy
CPT/HCPCS: 59025; 59050; 74018; 85025; 85027; 86850; 86900; 86901; 99218; J7120; G0378

== ENCOUNTER → 2024-07-07 | Outpatient (CLI) | payer SELFPAY ==
--- NOTE | 2024-07-07 10:36 | US_ITS ---
INDICATION: irregular menses EXAMINATION: Ultrasound US Transvaginal Non-OB COMPARISON: None. FINDINGS: 50 grayscale ultrasound images of the pelvis obtained transvaginally. In addition dedicated ovarian color Doppler interrogation was performed. UTERUS: Uterus measures : 9.3 x 6.1 x 4.5 cm. Endometrial thickness of 1.2 cm. Nabothian cysts. Myometrium is otherwise unremarkable. ADNEXA: Flow is documented to bilateral ovaries by color Doppler. Multiple small peripheral bilateral ovarian follicles. No significant free fluid. US/Transvaginal Non- IMPRESSION: Multiple small peripheral bilateral ovarian follicles in a pattern which can be seen with polycystic ovaries in the appropriate clinical setting. Electronically Signed: Dimitris Woodruff MD at 21:42 EDT ,
== END | disposition home or self-care (01) ==
PROVIDERS: PCP Internal Medicine; Referring Provider Internal Medicine; Visit Provider Internal Medicine
DX: N92.6 Irregular menstruation, unspecified (principal)
CPT/HCPCS: 76830